=== PATIENT | female | born 1955 | race Two or more races ===

== ENCOUNTER 2019-05-03 16:48 | Emergency (ER) | payer MEDICAID, OTHER ==
[~2019-05-03] VITALS: Ht 157.5 cm; Wt 68.0 kg
[2019-05-03] MEDS ORDERED: KETOROLAC 30MG/ML VIAL IV STA (18:07)
[2019-05-03] MEDS ORDERED: ONDANSETRON HCL 4MG/2ML INJ IV STA (18:07)
[2019-05-03] MEDS ORDERED: SODIUM CHLORIDE 0.9% 1,000 ML IV ONE (18:07)
[2019-05-03 18:35] LABS: HEMATOCRIT. 30.7 % (36.0-48.0); HEMOGLOBIN. 10.1 g/dL (12.0-16.0); MEAN CORPUSCULAR HEMOGLOBIN 30.2 pg (28.0-32.0); MEAN CORPUSCULAR VOLUME 91.4 fL (81.0-99.0); MEAN PLATELET VOLUME 7.8 fl (7.4-10.4); PLATELET 567 x1000/uL (130-400); RED BLOOD CELL COUNT 3.36 mill/uL (4.2-5.4)
[2019-05-03 18:36] LABS: PROTHROMBIN TIME 10.1 sec (9.6-11.0)
[2019-05-03 18:38] LABS: CHLORIDE 97 mEq/L (98-107)
[2019-05-03] MEDS ORDERED: LIDOCAINE HCL 2% JELLY 5ML TOP STA (19:17)
[2019-05-03 19:30] LABS: PLATELET ESTIMATE INCREASED
[2019-05-03 22:57] LABS: CLARITY URINE CLEAR (CLEAR); COLOR URINE YELLOW (YELLOW); KETONES URINE NEGATIVE (NEGATIVE); LEUKOCYTE ESTERASE URINE NEGATIVE (NEGATIVE); NITRITE URINE NEGATIVE (NEGATIVE); OCCULT BLOOD URINE NEGATIVE (NEGATIVE); PH URINE >=9.0 (4.5-8.0); PROTEIN URINE TRACE (NEGATIVE); SPECIFIC GRAVITY URINE 1.015 (1.005-1.030); UROBILINOGEN URINE 0.2 E.U./dL (0.2-1.0)
[2019-05-04 00:13] VITALS: BP 121/57
== END 2019-05-04 00:34 | disposition home or self-care (01) ==
LOC: ER 16:48
DX: K59.00 Constipation, unspecified (principal); E11.9 Type 2 diabetes mellitus without complications; I10 Essential (primary) hypertension
CPT/HCPCS: 36415; 74176; 80053; 81003; 83690; 85025; 85610; 96374; 96375; 99284; J1885; J2405; J7030; Z7610

== ENCOUNTER 2020-09-25 19:15 | Emergency (ER) | payer MEDICARE, MEDICAID ==
[~2020-09-25] VITALS: Ht 160 cm; Wt 71.0 kg
[2020-09-25] MEDS ORDERED: ONDANSETRON HCL 4MG/2ML INJ IV STA (19:49)
[2020-09-25] MEDS ORDERED: KETOROLAC 30MG/ML VIAL IV STA (19:49)
[2020-09-25] MEDS ORDERED: SODIUM CHLORIDE 0.9% 1,000 ML IV ONE (20:00)
[2020-09-25 20:13] LABS: BASOPHILS % 0.8 % (0.0-2.0); EOSINOPHILS % 1.2 % (0.0-5.0); HEMATOCRIT. 34.3 % (36.0-48.0); HEMOGLOBIN. 11.8 g/dL (12.0-16.0); LYMPHOCYTES % 26.1 % (20.0-50.0); MEAN CORPUSCULAR HEMOGLOBIN 30.7 pg (28.0-32.0); MEAN CORPUSCULAR VOLUME 88.7 fL (81.0-99.0); MEAN PLATELET VOLUME 9.4 fl (7.4-10.4); MONOCYTES % 9.2 % (2.0-8.0); NEUTROPHILS % 62.7 % (40.0-76.0); PLATELET 213 x1000/uL (130-400); RED BLOOD CELL COUNT 3.86 mill/uL (4.2-5.4); RED CELL DISTRIBUTION WIDTH 13.9 % (11.6-14.6)
[2020-09-25 20:18] LABS: CHLORIDE 105 mEq/L (98-107)
[2020-09-25 20:21] LABS: PROTHROMBIN TIME 10.3 sec (9.6-11.0)
[2020-09-26] MEDS ORDERED: ONDANSETRON HCL 4MG/2ML INJ IV ONE (00:30)
[2020-09-26] MEDS ORDERED: MORPHINE SULFATE 4 MG/ML CPJ (NOT FOR IM USE) IV ONE (00:30)
[2020-09-26 04:25] VITALS: BP 109/43
== END 2020-09-26 04:41 | disposition short-term general hospital (02) ==
LOC: ER 19:15
DX: T17.228A Food in pharynx causing other injury, initial encounter (principal); D64.9 Anemia, unspecified; I10 Essential (primary) hypertension; E11.9 Type 2 diabetes mellitus without complications; X58.XXXA Exposure to other specified factors, initial encounter; Y93.89 Activity, other specified; Y92.9 Unspecified place or not applicable
CPT/HCPCS: 36415; 70360; 71045; 80053; 85025; 85610; 96361; 96374; 96375; 96376; 99285; J1885; J2270; J2405; J7030